=== PATIENT | male | born 1945 | race Caucasian/White ===

== ENCOUNTER 2019-09-10 17:07 | Emergency (ER) | payer SELFPAY ==
--- NOTE | 2019-09-10 17:11 | NUR.NOTE ---
Nursing Note: Patient arrived unresponsive, entered intially as Chava Cooney. Orders and notes put in on patient on the Chava Cooney account. Will continue to use the [employer] account and then accounts to be merged by Medical Records. Maria G Devlin.
== END 2019-09-10 17:10 | disposition other institution (70) ==
LOC: ER 17:11
DX: Z53.21 Procedure and treatment not carried out due to patient leaving prior to being seen by health care provider (principal)